=== PATIENT | female | born 1995 | race African-American/Black ===

== ENCOUNTER → 2016-08-22 | Outpatient (CLI) | payer OTHER | LOC: HPND 09:53 | PROVIDERS: ATTEND Obstetrics & Gynecology | DX: O43.192 Other malformation of placenta, second trimester (principal); Z3A.26 26 weeks gestation of pregnancy | CPT/HCPCS: 76811; 76825; 76827; 93325 ==

== ENCOUNTER → 2016-09-18 | Outpatient (CLI) | payer OTHER | LOC: HPND 10:58 | PROVIDERS: ATTEND Obstetrics & Gynecology | DX: O35.8XX0 Maternal care for other (suspected) fetal abnormality and damage, not applicable or unspecified (principal); O43.193 Other malformation of placenta, third trimester; Z3A.30 30 weeks gestation of pregnancy | CPT/HCPCS: 76816 ==